=== PATIENT | female | born 1990 | race Caucasian/White ===

== ENCOUNTER 2021-08-17 09:39 | Inpatient (IN) | payer OTHER ==
[2021-08-17] MEDS ORDERED: ACETAMINOPHEN 325 MG TABLET (FP) PO PRN ×2 (09:59)
[2021-08-17] MEDS ORDERED: MAGNESIUM CITRATE 300 ML BOTTLE PO PRN (09:59)
[2021-08-17] MEDS ORDERED: MENTHOL/PHENOL 1 EACH UD MM PRN (09:59)
[2021-08-17] MEDS ORDERED: MAGNESIUM HYDROX 2400MG/30ML ORAL SUSPENSION 30 ML CUP PO PRN (09:59)
[2021-08-17] MEDS ORDERED: NICOTINE 10 MG CARTRIDGE (INHALER) IH PRN (09:59)
[2021-08-17] MEDS ORDERED: ONDANSETRON *ODT* 4 MG TABLET SL PRN (09:59)
[2021-08-17] MEDS ORDERED: MAG HYDROX/AL HYDROX/SIMETH 30 ML UNIT-DOSE CUP PO PRN (09:59)
[2021-08-17] MEDS ORDERED: BISMUTH SUBSALICYLATE 524 MG/30 ML PO PRN (09:59)
[2021-08-17] MEDS ORDERED: IBUPROFEN 400 MG TABLET (FP) PO PRN (09:59)
[2021-08-17 10:03] VITALS: BMI 17.2
[2021-08-17] MEDS ORDERED: methaDONE HCL 10 MG TABLET (FOR DETOX USE ONLY) PO ONE (10:45)
[2021-08-17] MEDS: hydrOXYzine PAMOATE 25 MG CAPSULE (FP) PO SCH ×4 (12:24→22:40)
[2021-08-17] MEDS: PRENATAL VITAMINS W/ FOLIC ACID TABLET (FP) PO SCH (12:29)
[2021-08-17] MEDS: NICOTINE 14 MG/24 HOURS TOPICAL PATCH TD SCH (12:30)
[2021-08-17] MEDS: METHOCARBAMOL 500 MG TABLET PO PRN (15:09)
[2021-08-17 15:46] LABS: HEMATOCRIT 33.5 % (32.4-45.2); HEMOGLOBIN 11.2 GM/dL (10.7-15.3); MCH 27.9 pg (25.7-33.7); MCHC 33.3 g/dl (32.0-36.0); MEAN CELL VOLUME 83.7 fl (80-96); MEAN PLT VOLUME 9.8 fl (7.5-11.1); PLATELET COUNT 227 10^3/uL (134-434); RBC 4.01 M/mm3 (3.60-5.2); WHITE BLOOD COUNT 9.5 K/mm3 (4.0-10.0)
[2021-08-17 16:06] LABS: ALBUMIN 3.7 g/dl (3.4-5.0); BLOOD UREA NITROGEN 15.2 mg/dL (7-18); CALCIUM 9.1 mg/dL (8.5-10.1)
[2021-08-17 16:08] LABS: BILIRUBIN,TOTAL 0.6 mg/dL (0.2-1)
[2021-08-17 16:09] LABS: CREATININE 0.8 mg/dL (0.55-1.3)
[2021-08-17] MEDS: cloNIDine HCL 0.1 MG TABLET PO PRN (22:40)
[2021-08-17] MEDS: MELATONIN 5 MG TABLETS PO SCH (22:40)
[2021-08-17] MEDS: QUEtiapine FUMARATE 50 MG TABLET PO SCH (22:40)
[2021-08-17] MEDS: THIAMINE HCL 100 MG TABLET (FP) PO SCH (22:40)
[2021-08-18] MEDS: hydrOXYzine PAMOATE 25 MG CAPSULE (FP) PO SCH ×5 (07:42→22:38)
[2021-08-18] MEDS ORDERED: methaDONE HCL 10 MG TABLET (FOR DETOX USE ONLY) ONE (09:48)
[2021-08-18] MEDS: NICOTINE 14 MG/24 HOURS TOPICAL PATCH TD SCH (10:59)
[2021-08-18] MEDS: METHOCARBAMOL 500 MG TABLET PO PRN ×2 (11:00→19:42)
[2021-08-18] MEDS: PRENATAL VITAMINS W/ FOLIC ACID TABLET (FP) PO SCH (11:00)
[2021-08-18] MEDS: cloNIDine HCL 0.1 MG TABLET PO PRN (19:42)
[2021-08-18] MEDS: THIAMINE HCL 100 MG TABLET (FP) PO SCH (22:38)
[2021-08-18] MEDS: QUEtiapine FUMARATE 50 MG TABLET PO SCH (22:38)
[2021-08-18] MEDS: MELATONIN 5 MG TABLETS PO SCH (22:38)
[2021-08-19] MEDS: hydrOXYzine PAMOATE 25 MG CAPSULE (FP) PO SCH ×2 (07:49→09:17)
[2021-08-19] MEDS: METHOCARBAMOL 500 MG TABLET PO PRN (09:16)
[2021-08-19] MEDS: PRENATAL VITAMINS W/ FOLIC ACID TABLET (FP) PO SCH (09:17)
[2021-08-19] MEDS: NICOTINE 14 MG/24 HOURS TOPICAL PATCH TD SCH (09:17)
[2021-08-19] MEDS ORDERED: methaDONE HCL 10 MG TABLET (FOR DETOX USE ONLY) PO ONE (10:00)
[2021-08-19 11:29] VITALS: BP 108/71; PULSE 68; TEMP 97.8
[2021-08-21] MEDS ORDERED: methaDONE HCL 10 MG TABLET (FOR DETOX USE ONLY) PO ONE (10:00)
== END 2021-08-19 12:45 | disposition left against medical advice (07) | DRG 770 ==
LOC: YASAS 09:39 → Y3N 10:33
PROVIDERS: ADMIT Allergy & Immunology; ATTEND Allergy & Immunology
PROC: HZ2ZZZZ Detoxification Services for Substance Abuse Treatment (ICD-10-PCS; principal; 2021-08-17)
DX: F11.23 Opioid dependence with withdrawal (principal); F10.230 Alcohol dependence with withdrawal, uncomplicated; F13.10 Sedative, hypnotic or anxiolytic abuse, uncomplicated; F90.9 Attention-deficit hyperactivity disorder, unspecified type; F31.9 Bipolar disorder, unspecified; F19.24 Other psychoactive substance dependence with psychoactive substance-induced mood disorder; U07.0 Vaping-related disorder; G47.00 Insomnia, unspecified; Z91.14 Patient's other noncompliance with medication regimen; Z86.69 Personal history of other diseases of the nervous system and sense organs; Z56.0 Unemployment, unspecified
CPT/HCPCS: 36415; 80053; 81025; 85027; 86780; 93005; 93010; C9803; J0735; U0003; U0005

== ENCOUNTER 2021-11-03 18:03 | Inpatient (IN) | payer OTHER ==
[2021-11-03 20:53] VITALS: BMI 16.4
[2021-11-04] MEDS ORDERED: MENTHOL/PHENOL 1 EACH UD MM PRN (05:03)
[2021-11-04] MEDS ORDERED: cloNIDine HCL 0.1 MG TABLET PO PRN (05:03)
[2021-11-04] MEDS ORDERED: methaDONE HCL 10 MG TABLET (FOR DETOX USE ONLY) PO ONE (05:03)
[2021-11-04] MEDS ORDERED: ACETAMINOPHEN 325 MG TABLET (FP) PO PRN ×2 (05:03)
[2021-11-04] MEDS ORDERED: MAGNESIUM CITRATE 300 ML BOTTLE PO PRN (05:03)
[2021-11-04] MEDS ORDERED: LOPERAMIDE HCL 2 MG CAPSULE PO PRN (05:03)
[2021-11-04] MEDS ORDERED: MAGNESIUM HYDROX 2400MG/30ML ORAL SUSPENSION 30 ML CUP PO PRN (05:03)
[2021-11-04] MEDS ORDERED: ONDANSETRON *ODT* 4 MG TABLET SL PRN (05:03)
[2021-11-04] MEDS ORDERED: NICOTINE 10 MG CARTRIDGE (INHALER) IH PRN (05:03)
[2021-11-04] MEDS ORDERED: MAG HYDROX/AL HYDROX/SIMETH 30 ML UNIT-DOSE CUP PO PRN (05:03)
[2021-11-04] MEDS ORDERED: BISMUTH SUBSALICYLATE 524 MG/30 ML PO PRN (05:03)
[2021-11-04] MEDS ORDERED: IBUPROFEN 400 MG TABLET (FP) PO PRN (05:03)
[2021-11-04] MEDS: PRENATAL VITAMINS W/ FOLIC ACID TABLET (FP) PO SCH (10:24)
[2021-11-04] MEDS: NICOTINE 14 MG/24 HOURS TOPICAL PATCH TD SCH (10:24)
[2021-11-04] MEDS: METHOCARBAMOL 500 MG TABLET PO PRN ×2 (17:20→22:30)
[2021-11-04] MEDS: THIAMINE HCL 100 MG TABLET (FP) PO SCH (22:30)
[2021-11-04] MEDS: MELATONIN 5 MG TABLETS PO SCH (22:30)
[2021-11-04] MEDS: QUEtiapine FUMARATE 50 MG TABLET PO SCH (22:30)
[2021-11-05] MEDS ORDERED: methaDONE HCL 10 MG TABLET (FOR DETOX USE ONLY) ONE (09:07)
[2021-11-05] MEDS: diazePAM 5 MG TABLET PO PRN ×3 (10:14→22:14)
[2021-11-05] MEDS: NICOTINE 14 MG/24 HOURS TOPICAL PATCH TD SCH (10:16)
[2021-11-05] MEDS: PRENATAL VITAMINS W/ FOLIC ACID TABLET (FP) PO SCH (10:17)
[2021-11-05 10:55] LABS: ALBUMIN 3.9 g/dl (3.4-5.0); BLOOD UREA NITROGEN 12.3 mg/dL (7-18); CALCIUM 9.3 mg/dL (8.5-10.1); HEMATOCRIT 38.7 % (32.4-45.2); HEMOGLOBIN 12.5 GM/dL (10.7-15.3); MCHC 32.4 g/dl (32.0-36.0); MEAN CELL VOLUME 86.5 fl (80-96); MEAN PLT VOLUME 10.5 fl (7.5-11.1); PLATELET COUNT 199 10^3/uL (134-434); RBC 4.47 M/mm3 (3.60-5.2); RDW 15.9 % (11.6-15.6); WHITE BLOOD COUNT 5.5 K/mm3 (4.0-10.0)
[2021-11-05 10:58] LABS: CREATININE 0.8 mg/dL (0.55-1.3)
[2021-11-05 11:01] LABS: BILIRUBIN,TOTAL 0.6 mg/dL (0.2-1); TOT PROT 7.5 g/dl (6.4-8.2)
[2021-11-05] MEDS: METHOCARBAMOL 500 MG TABLET PO PRN (17:53)
[2021-11-05] MEDS: THIAMINE HCL 100 MG TABLET (FP) PO SCH (22:12)
[2021-11-05] MEDS: MELATONIN 5 MG TABLETS PO SCH (22:12)
[2021-11-05] MEDS: QUEtiapine FUMARATE 50 MG TABLET PO SCH (22:13)
[2021-11-06] MEDS: diazePAM 5 MG TABLET PO PRN (06:48)
[2021-11-06 08:48] VITALS: BP 110/69; PULSE 70; TEMP 98.3
[2021-11-06] MEDS ORDERED: methaDONE HCL 10 MG TABLET (FOR DETOX USE ONLY) PO ONE (10:00)
[2021-11-06 14:07] LABS: SARS-CoV-2 NAA Not Detected (Not Detected)
[2021-11-08] MEDS ORDERED: methaDONE HCL 10 MG TABLET (FOR DETOX USE ONLY) PO ONE (10:00)
== END 2021-11-06 09:12 | disposition left against medical advice (07) | DRG 770 ==
LOC: YASAS 18:03 → Y3N 11-04 02:12
PROVIDERS: ADMIT Allergy & Immunology; ATTEND Allergy & Immunology
PROC: HZ2ZZZZ Detoxification Services for Substance Abuse Treatment (ICD-10-PCS; principal; 2021-11-04)
DX: F11.23 Opioid dependence with withdrawal (principal); F14.20 Cocaine dependence, uncomplicated; F12.20 Cannabis dependence, uncomplicated; F17.210 Nicotine dependence, cigarettes, uncomplicated; F19.282 Other psychoactive substance dependence with psychoactive substance-induced sleep disorder; F19.24 Other psychoactive substance dependence with psychoactive substance-induced mood disorder; F90.9 Attention-deficit hyperactivity disorder, unspecified type; F41.9 Anxiety disorder, unspecified; Z91.14 Patient's other noncompliance with medication regimen; Z56.0 Unemployment, unspecified
CPT/HCPCS: 36415; 80053; 81025; 85027; 86780; 93005; 93010; C9803; J0735; U0003; U0005

== ENCOUNTER 2022-12-05 10:31 | Inpatient (IN) | payer OTHER ==
[2022-12-05 10:56] VITALS: BMI 16.9
[2022-12-05] MEDS ORDERED: hydrOXYzine PAMOATE 25 MG CAPSULE (FP) PO PRN (11:17)
[2022-12-05] MEDS ORDERED: MAGNESIUM HYDROX 2400MG/30ML ORAL SUSPENSION 30 ML CUP PO PRN (11:17)
[2022-12-05] MEDS ORDERED: BISMUTH SUBSALICYLATE 524 MG/30 ML PO PRN (11:17)
[2022-12-05] MEDS ORDERED: BUPRENORPHINE HCL 150 MCG, BUPRENORPHINE HCL 75 MCG BC ONE (11:17)
[2022-12-05] MEDS ORDERED: cloNIDine HCL 0.1 MG TABLET PO ONE (11:17)
[2022-12-05] MEDS ORDERED: DICYCLOMINE HCL 10 MG CAPSULE PO PRN (11:17)
[2022-12-05] MEDS ORDERED: ACETAMINOPHEN 325 MG TABLET (FP) PO PRN (11:17)
[2022-12-05] MEDS ORDERED: IBUPROFEN 400 MG TABLET (FP) PO PRN (11:17)
[2022-12-05] MEDS ORDERED: METHOCARBAMOL 500 MG TABLET PO PRN (11:17)
[2022-12-05] MEDS ORDERED: NALOXONE HCL (KLOXXADO) 8 MG SPRAY NS PRN (11:17)
[2022-12-05] MEDS ORDERED: BENZONATATE 200 MG CAPSULE PO PRN (11:17)
[2022-12-05] MEDS ORDERED: NALOXONE HCL 0.4 MG/ML VIAL IM PRN (11:17)
[2022-12-05] MEDS ORDERED: POLYETHYLENE GLYCOL (HEALTHYLAX) 3350 17 GM PACKET PO PRN (11:17)
[2022-12-05] MEDS ORDERED: IBUPROFEN 600 MG TABLET (FP) PO PRN (11:17)
[2022-12-05] MEDS ORDERED: AMMONIUM LACTATE 12% LOTION 225 GM BOTTLE TP PRN (11:17)
[2022-12-05] MEDS ORDERED: MAG HYDROX/AL HYDROX/SIMETH 30 ML UNIT-DOSE CUP PO PRN (11:17)
[2022-12-05] MEDS ORDERED: BENZOCAINE/MENTHOL (CHLORASEPTIC ) LOZENGE MM PRN (11:17)
[2022-12-05] MEDS ORDERED: diazePAM 5 MG TABLET PO PRN (11:17)
[2022-12-05] MEDS ORDERED: BUPRENORPHINE HCL 150 MCG, BUPRENORPHINE HCL 75 MCG BC PRN (11:17)
[2022-12-05] MEDS ORDERED: ONDANSETRON *ODT* 4 MG TABLET SL PRN (11:17)
[2022-12-05] MEDS ORDERED: LOPERAMIDE HCL 2 MG CAPSULE PO PRN (11:17)
[2022-12-05] MEDS ORDERED: guaiFENesin 600 MG TABLET.ER (FP) PO PRN (11:17)
[2022-12-05] MEDS ORDERED: chlordiazePOXIDE HCL 25 MG CAPSULE ONE (11:54)
[2022-12-05] MEDS ORDERED: BUPRENORPHINE HCL 150 MCG FILM BC ONE (11:55)
[2022-12-05] MEDS ORDERED: BUPRENORPHINE HCL 75 MCG FILM BC ONE (11:56)
[2022-12-05] MEDS ORDERED: cloNIDine HCL 0.1 MG TABLET ONE (11:57)
[2022-12-05] MEDS ORDERED: PRENATAL VITAMINS W/ FOLIC ACID TABLET (FP) PO ONE (11:57)
[2022-12-05] MEDS ORDERED: NICOTINE 14 MG/24 HOURS TOPICAL PATCH TD ONE (11:58)
[2022-12-05] MEDS: PRENATAL VITAMINS W/ FOLIC ACID TABLET (FP) PO SCH (12:19)
[2022-12-05] MEDS: NICOTINE 14 MG/24 HOURS TOPICAL PATCH TD SCH (12:20)
[2022-12-05] MEDS: chlordiazePOXIDE HCL 25 MG CAPSULE PO SCH ×3 (12:21→23:38)
[2022-12-05] MEDS: BACLOFEN 10 MG TABLET (FP) PO SCH ×2 (14:16→23:37)
[2022-12-05] MEDS: NICOTINE 10 MG CARTRIDGE (INHALER) IH PRN ×2 (14:36→17:37)
[2022-12-05] MEDS ORDERED: cloNIDine HCL 0.1 MG TABLET PO PRN (15:17)
[2022-12-05 15:52] LABS: HEMATOCRIT 35.4 % (32.4-45.2); HEMOGLOBIN 12.3 GM/dL (10.7-15.3); MCH 31.8 pg (25.7-33.7); MCHC 34.8 g/dl (32.0-36.0); MEAN CELL VOLUME 91.6 fl (80-96); MEAN PLT VOLUME 10.4 fl (7.5-11.1); PLATELET COUNT 164 10^3/uL (134-434); RBC 3.87 M/mm3 (3.60-5.2); RDW 12.1 % (11.6-15.6); WHITE BLOOD COUNT 6.5 K/mm3 (4.0-10.0)
[2022-12-05 16:27] LABS: CALCIUM 8.6 mg/dL (8.5-10.1)
[2022-12-05 16:28] LABS: ALBUMIN 3.9 g/dl (3.4-5.0)
[2022-12-05 16:31] LABS: BILIRUBIN,TOTAL 0.6 mg/dL (0.2-1); CREATININE 0.8 mg/dL (0.55-1.3); TOT PROT 6.8 g/dl (6.4-8.2)
[2022-12-05] MEDS ORDERED: MELATONIN 5 MG TABLETS PO SCH (22:00)
[2022-12-05] MEDS: THIAMINE HCL 100 MG TABLET (FP) PO SCH (23:37)
[2022-12-05] MEDS: QUEtiapine FUMARATE 50 MG TABLET PO SCH (23:38)
[2022-12-06] MEDS ORDERED: BUPRENORPHINE HCL 150 MCG, BUPRENORPHINE HCL 75 MCG BC PRN
[2022-12-06] MEDS: BUPRENORPHINE HCL 150 MCG, BUPRENORPHINE HCL 75 MCG BC SCH ×2 (05:52→18:31)
[2022-12-06] MEDS: BACLOFEN 10 MG TABLET (FP) PO SCH ×3 (05:54→22:31)
[2022-12-06] MEDS: chlordiazePOXIDE HCL 25 MG CAPSULE PO SCH ×4 (05:54→22:31)
[2022-12-06] MEDS: NICOTINE 10 MG CARTRIDGE (INHALER) IH PRN ×4 (05:56→22:47)
[2022-12-06] MEDS: NICOTINE 14 MG/24 HOURS TOPICAL PATCH TD SCH (10:55)
[2022-12-06] MEDS: PRENATAL VITAMINS W/ FOLIC ACID TABLET (FP) PO SCH (10:55)
[2022-12-06] MEDS: chlordiazePOXIDE HCL 25 MG CAPSULE PO PRN (13:36)
[2022-12-06] MEDS: THIAMINE HCL 100 MG TABLET (FP) PO SCH (22:31)
[2022-12-06] MEDS: QUEtiapine FUMARATE 50 MG TABLET PO SCH (22:31)
[2022-12-07] MEDS: chlordiazePOXIDE HCL 25 MG CAPSULE PO SCH ×4 (05:57→22:02)
[2022-12-07] MEDS: BACLOFEN 10 MG TABLET (FP) PO SCH ×3 (05:57→21:58)
[2022-12-07] MEDS: BUPRENORPHINE HCL 450 MCG FILM BC SCH ×2 (06:16→18:02)
[2022-12-07] MEDS: PRENATAL VITAMINS W/ FOLIC ACID TABLET (FP) PO SCH (10:57)
[2022-12-07] MEDS: NICOTINE 14 MG/24 HOURS TOPICAL PATCH TD SCH (10:59)
[2022-12-07] MEDS: NICOTINE 10 MG CARTRIDGE (INHALER) IH PRN (10:59)
[2022-12-07] MEDS: chlordiazePOXIDE HCL 25 MG CAPSULE PO PRN ×2 (13:00→19:54)
[2022-12-07 18:03] VITALS: RESP 18
[2022-12-07] MEDS: QUEtiapine FUMARATE 50 MG TABLET PO SCH (21:57)
[2022-12-07] MEDS: THIAMINE HCL 100 MG TABLET (FP) PO SCH (21:58)
[2022-12-07 22:38] VITALS: BP 104/65; PULSE 79; TEMP 98
[2022-12-08] MEDS ORDERED: chlordiazePOXIDE HCL 10 MG CAPSULE PO PRN
[2022-12-08] MEDS ORDERED: chlordiazePOXIDE HCL 10 MG CAPSULE PO SCH (05:00)
[2022-12-08] MEDS ORDERED: BUPRENORPHINE/NALOXONE 4 MG/1 MG FILM PACKET SL SCH (06:00)
[2022-12-09] MEDS ORDERED: chlordiazePOXIDE HCL 10 MG CAPSULE PO SCH (05:00)
[2022-12-09] MEDS ORDERED: BUPRENORPHINE/NALOXONE 8 MG/2 MG FILM PACKET SL ONE (06:00)
[2022-12-10] MEDS ORDERED: chlordiazePOXIDE HCL 10 MG CAPSULE PO ONE (05:00)
== END 2022-12-07 11:30 | disposition left against medical advice (07) | DRG 770 ==
LOC: YASAS 10:31 → Y3N 11:32
PROVIDERS: ADMIT Allergy & Immunology; ATTEND Surgery
PROC: HZ2ZZZZ Detoxification Services for Substance Abuse Treatment (ICD-10-PCS; principal; 2022-12-05)
DX: F11.23 Opioid dependence with withdrawal (principal); F10.230 Alcohol dependence with withdrawal, uncomplicated; F14.10 Cocaine abuse, uncomplicated; F12.20 Cannabis dependence, uncomplicated; F17.290 Nicotine dependence, other tobacco product, uncomplicated; F19.282 Other psychoactive substance dependence with psychoactive substance-induced sleep disorder; F31.9 Bipolar disorder, unspecified; F41.9 Anxiety disorder, unspecified
CPT/HCPCS: 36415; 80053; 81025; 85027; 86780; 87811; 93005; 93010; C9803-CS; J0475; Q0162; U0003; U0005